=== PATIENT | male | born 1965 | race Caucasian/White ===

== ENCOUNTER 2022-03-21 08:14 | Outpatient (CLI) | payer OTHER, SELFPAY ==
--- NOTE | 2022-03-21 | XR_ITS ---
WS: [id number] Exam: XR finger RT min 2V [id number] Date/Time of Exam: 03/21/2022 12:00 AM Reason For Exam: JAMMED MIDDLE FINGER WHILE KAYAKING The third finger is targeted for radiographic evaluation. No acute fracture or dislocation. Degenerative narrowing of the IP joints. Mild flexion deformity of the DIP joint which may be secondary to previous tendon injury. XR/XR finger RT min 2V [id number] IMPRESSION: 1. No fractures. 2. Degenerative changes. 3. Mild flexion deformity of the DIP joint that may be secondary to previous te ndon injury.
== END 2022-03-21 08:15 | disposition home or self-care (01) ==
LOC: RADOUTREAD 03-25 08:16
PROVIDERS: PCP Family Medicine; Visit Provider Nurse Practitioner Family
DX: M79.644 Pain in right finger(s) (principal); W23.1XXA Caught, crushed, jammed, or pinched between stationary objects, initial encounter; Y93.16 Activity, rowing, canoeing, kayaking, rafting and tubing
CPT/HCPCS: 73140